=== PATIENT | male | born 1960 | race Caucasian/White ===

== ENCOUNTER 2018-12-16 15:56 | Emergency (ER) | payer OTHER ==
[~2018-12-16] VITALS: Ht 175.3 cm; Wt 90.0 kg
[~2018-12-16 15:56] MED LIST: LEVO500T2 PO; NO HOME MEDS
[2018-12-16] MEDS ORDERED: LIDOcaine 5% patch TP STA (16:21)
[2018-12-16] MEDS ORDERED: LIDO700A32 TOP (16:22)
[2018-12-16 17:02] VITALS: BP 160/103
== END 2018-12-16 16:50 | disposition home or self-care (01) ==
LOC: ER 15:57
DX: S46.811A Strain of other muscles, fascia and tendons at shoulder and upper arm level, right arm, initial encounter (principal); M54.2 Cervicalgia; F12.90 Cannabis use, unspecified, uncomplicated; Z79.2 Long term (current) use of antibiotics; Z79.899 Other long term (current) drug therapy; Z90.49 Acquired absence of other specified parts of digestive tract; V43.92XA Unspecified car occupant injured in collision with other type car in traffic accident, initial encounter; Y93.89 Activity, other specified; Y92.488 Other paved roadways as the place of occurrence of the external cause; Y99.8 Other external cause status
CPT/HCPCS: 99282